=== PATIENT | male | born 1965 | race African-American/Black ===

== ENCOUNTER 2018-03-12 04:07 | Emergency (ER) | payer SELFPAY ==
[~2018-03-12] VITALS: Ht 177.8 cm; Wt 102.1 kg
[2018-03-12 04:23] VITALS: BP 168/90
[2018-03-12] MEDS ORDERED: Fleet's Enema 133ml RECTAL ONE (04:30)
--- NOTE | 2018-03-12 04:31 | Emergency Room Report ---
History of Present Illness General Chief Complaint: Constipation Source: Patient Present Illness HPI Patient presents with reports that he had difficulty passing stool over the past 2 hours Denies any abdominal pain denies any vomiting Patient reports that he has been on antibiotics for a dental infection He also feels that he has not been binging enough water Denies any chest pain or short of breath Denies any blood in the stool Patient had a bowel movement yesterday Also passing gas Allergies: Coded Allergies: No Known Allergies (Unverified , 03/12/18) Patient History Past Medical History: see triage record Pertinent Family History: none Reviewed Nursing Documentation: PMH: Agreed; PSxH: Agreed Nursing Documentation-PMH Hx Hypertension: Yes Review of Systems All Other Systems: negative except mentioned in HPI Physical Exam Vital Signs Date Time Temp Pulse Resp B/P (MAP) Pulse Ox O2 Delivery O2 Flow Rate FiO2 03/12/18 04:11 98.3 101 18 172/85 98 Room Air 98.2 Sp02 EP Interpretation: reviewed, normal General Appearance: well appearing, no apparent distress Head: normocephalic, atraumatic Eyes: bilateral eye PERRL, bilateral eye EOMI ENT: hearing grossly normal, normal pharynx, TMs + canals normal, uvula midline Neck: full range of motion, supple, no meningismus, no bony tend Respiratory: lungs clear, normal breath sounds, no rhonchi, no respiratory distress, no retraction, no accessory muscle use Cardiovascular #1: normal peripheral pulses, regular rate, rhythm, no edema, no gallop, no JVD, no murmur Gastrointestinal: normal bowel sounds, non tender, soft, no mass, no organomegaly, non-distended, no guarding, no hernia, no pulsatile mass, no rebound Genitourinary: no CVA tenderness Musculoskeletal: normal inspection Neurologic: oriented x3, responsive, card painter III-XII nml as tested, motor strength/ tone normal, sensory intact Psychiatric: mood/affect normal Skin: normal color, no rash, warm/dry, palpation normal Lymphatic: normal inspection, no adenopathy Medical Decision Making Diagnostic Impression: Primary Impression: Constipation ER Course Multiple differentials are considered I did ask patient regarding previous colonoscopy He has not had any previously He also reiterates that he does not feel that it is colon cancer And thinks that he is simply dehydrated Patient is provided with first fleets enema dose here in the ER Patient has significant improvement with successful bowel movements Patient's presentation is fairly early and other differentials can be missed He requires close outpatient follow-up and return with any worsening symptoms Last Vital Signs Date Time Temp Pulse Resp B/P (MAP) Pulse Ox O2 Delivery O2 Flow Rate FiO2 03/12/18 04:23 98.0 76 18 168/90 98 Room Air 98.0 Status: improved Disposition: HOME, SELF-CARE Condition: Improved Scripts Na Phos,M-B/Na Phos,Di-Ba* (FLEET ENEMA*) 133 Ml Enema 133 ML RECTAL DAILY for 3 Days, ML 0 Refills Prov: Shoshana Alvarado DO 03/12/18 Referrals: NOT CHOSEN IPA/MD,REFERRING (PCP) Additional Instructions: Patient is provided with the discharge instructions notified to follow up with primary doctor in the next 2-3 days otherwise return to the er with any worsening symptoms. Please note that this report is being documented using DRAGON technology. This can lead to erroneous entry secondary to incorrect interpretation by the dictating instrument. Shoshana Alvarado DO March 12, 2018 04:31
[2018-03-12] MEDS ORDERED: FLEET ENEMA133 ML RECTAL (04:54)
[2018-03-12 05:00] VITALS: BP 154/84
[2018-03-12 05:05] VITALS: BP 154/84
== END 2018-03-12 05:08 | disposition home or self-care (01) ==
LOC: EMR 04:24
DX: K59.00 Constipation, unspecified (principal); I10 Essential (primary) hypertension
CPT/HCPCS: 99283